=== PATIENT | male | born 1975 | race Two or more races ===

== ENCOUNTER 2021-11-28 06:41 | Day surgery (SDC) | payer OTHER ==
[~2021-11-28 06:41] MED LIST: AMLODIPINE PO; ENALAPRIL MALEA10 MG PO; GLUMETZA500 MG PO
[2021-11-28] MEDS ORDERED: PERCOCET 5-3251 EACH PO (09:19)
[2021-11-28] MEDS ORDERED: RECTICARE30 GM TOP (09:20)
== END 2021-11-28 14:55 | disposition home or self-care (01) ==
LOC: CIR.AMB 06:41
PROVIDERS: ATTEND Surgery
DX: K60.3 Anal fistula (principal); R19.4 Change in bowel habit; I10 Essential (primary) hypertension; E11.9 Type 2 diabetes mellitus without complications; Z79.84 Long term (current) use of oral hypoglycemic drugs